=== PATIENT | female | born 1960 | race Caucasian/White ===

== ENCOUNTER 2018-06-10 18:16 | Emergency (ER) | payer OTHER, SELFPAY ==
[2018-06-10 18:49] VITALS: BP 147/85; PULSE 118; RESP 17; TEMP 36.5
[2018-06-10 22:26] VITALS: BP 131/94; PULSE 85; RESP 20; TEMP 37.1; O2SAT 97
--- NOTE | 2018-06-10 22:27 | DI.CT.S_ITS ---
PROCEDURE: CT ABDOMEN PELVIS W CON INDICATIONS: nausea ,increased pain TECHNIQUE: After the administration of intravenous contrast, 5 mm thick sections acquired from the diaphragm to the symphysis. 5 mm coronal and sagittal reformats were acquired. For radiation dose reduction, the following was used: automated exposure control, adjustment of mA and/or kV according to patient size. COMPARISON: None. FINDINGS: Image quality: Excellent. ABDOMEN: Lung bases: Lung bases are clear. Heart size is normal. Solid organs: Liver is normal in size and enhancement. Diffuse fatty infiltration of the liver with focal fatty sparing adjacent to the gallbladder fossa. Liver has a nodular contour suggesting hepatic cirrhosis. Gallbladder contains a small gallstone. Biliary system is non dilated. Pancreas enhances normally. Spleen is normal in size and enhancement. 1.3 cm soft tissue density left adrenal nodule. Right kidney demonstrates normal size and enhancement, without hydronephrosis. Left kidney is atrophied. Numerous 2-4 mm diameter nonobstructing stones noted in the inferior pole of the left kidney. Peritoneum and bowel: Bowel loops demonstrate normal wall thickness and caliber. Scattered colonic diverticuli without evidence of diverticulitis. No free fluid or air. Nodes and vessels: No retroperitoneal or mesenteric adenopathy by size criteria. Aorta and inferior vena cava are normal in size. Scattered atherosclerotic calcifications involving the abdominal and pelvic vasculature. Miscellaneous: No ventral hernias. PELVIS: Genitourinary: Bladder wall thickness is normal. Miscellaneous: No inguinal hernias or adenopathy. Bones: No suspicious bony lesions. No vertebral body compression fractures. Spine degenerative disc disease and facet arthropathy. IMPRESSION: 1. No evidence of appendicitis. 2. Colonic diverticulosis without evidence of diverticulitis. 3. Left renal atrophy. 4. Hepatic steatosis. Liver has mildly nodular margins suggesting hepatic cirrhosis. Recommend correlation with clinical and laboratory data. 5. Cholelithiasis. 6. 1.3 cm left adrenal nodule. Recommend dedicated MR or CT adrenal protocol for definitive characterization. Dictated by: Ani Mcbride MD, PhD on 06/11/2018 at 8:30 Approved by: Ani Mcbride MD, PhD on 06/11/2018 at 8:35
--- NOTE | 2018-06-10 22:28 | ED.GENADULT ---
HPI - General Adult General Chief complaint: Diabetic Problem Stated complaint: HIGH BLOOD SUGAR Time Seen by Provider: 06/10/18 22:26 Source: patient Mode of arrival: ambulatory Limitations: no limitations History of Present Illness HPI narrative: Patient is a 58-year-old female presents with his nausea ongoing for last 2 days. She says she has actually vomiting. She does have some mild abdominal pain and discomfort. She had 1 episode of diarrhea yesterday is no further episodes. She is a diabetic she has been able to take her insulin but none of her other medications. She denies any fever or chills. Onset (ago): day(s) (2) Related Data Previous Rx's Medication Instructions Recorded cephalexin [Keflex] 500 mg PO TID #15 cap 06/11/18 ondansetron 4 mg PO Q6-8H PRN #10 tab 06/11/18 Allergies Allergy/AdvReac Type Severity Reaction Status Date / Time lidocaine Allergy Verified 06/10/18 23:59 morphine Allergy Verified 06/10/18 23:59 Tetanus Vaccines and Toxoid Allergy Verified 06/10/18 23:59 Review of Systems Review of Systems GENERAL: Denies chills, fatigue, malaise, fever, sweats, travel HEENT: Denies sinus pain, ear pain, sore throat, difficulty swallowing, neck pain RESPIRATORY: Denies dyspnea, cough, wheezing, hemoptysis, sputum. CARDIOVASCULAR: Denies chest pain, palpitations, orthopnea, edema GASTROINTESTINAL: See HPI : Denies dysuria, frequency, incontinence, hematuria, urinary retention, flank pain. MUSCULOSKELETAL: Denies weakness, joint pain, or bony pain SKIN: No rash, no erythema, no pruritus NEUROLOGIC: Denies weakness, dizziness, headache, numbness, change in speech, confusion PSYCHIATRIC: No concerning psychosocial issues. 12 point review of systems is negative except for those stated above and HPI PFSH Medical History Diabetes (Acute) Hyperlipidemia (Acute) Social History Smoking Status: Never smoker Social History Smoking Status: Never smoker Exam Initial Vital Signs Initial Vital Signs: Vital Signs Temperature 97.7 F 06/10/18 18:49 Pulse Rate 118 H 06/10/18 18:49 Respiratory Rate 17 06/10/18 18:49 Blood Pressure 147/85 H 06/10/18 18:49 GENERAL: Overweight well-appearing female no acute distress HEENT: Head atraumatic,EOMI, pupils reactive, face symmetric, moist mucous membranes CARDIOVASCULAR: Regular rate and rhythm without murmurs, rubs or gallops. RESPIRATORY: Breath sounds equal bilaterally, no wheezes rales or rhonchi. ABDOMEN: Soft, slightly distended increased bowel sounds nontender no guarding or rebound EXTREMITIES: Normal range of motion, no clubbing or edema. Neurovascularly intact NEUROLOGICAL: Alert and oriented x4.Normal gait and speech. SKIN: Warm, dry, no laceration, no petechiae, no rashes or lesions. Course Orders Ordered: ED Orders 06/10/18 22:27 CT abdomen pelvis w con Stat 06/10/18 23:15 Complete Blood Count AUTO DIFF Stat Comprehensive Metabolic Panel Stat Lipase Stat 06/10/18 23:26 Urine Culture Stat 06/11/18 00:11 UA Complete [Urinalysis and Microscopic] Stat Discontinued Medications Sodium Chloride (Normal Saline 0.9%) 1,000 mls @ 1,000 mls/hr IV CONT GEOVANNI Last Infusion: 06/11/18 00:00 Dose: 0 mls/hr Admin: 06/10/18 22:56 Dose: 1,000 mls/hr Ondansetron HCl (Zofran) 4 mg IV NOW ONE Stop: 06/10/18 22:28 Last Admin: 06/10/18 22:56 Dose: 4 mg Ondansetron HCl (Zofran Odt Prepack) 1 bottle MISC SEEINSTR ONE Stop: 06/11/18 01:28 Last Admin: 06/11/18 01:36 Dose: 1 bottle Pantoprazole Sodium (Protonix) 40 mg IV NOW ONE Stop: 06/10/18 22:28 Last Admin: 06/10/18 22:56 Dose: 40 mg Vital Signs - 8 hr 06/10/18 22:26 06/10/18 23:44 06/11/18 01:37 Temperature 98.8 F 98.2 F Pulse Rate 85 81 78 Respiratory Rate 20 18 18 Blood Pressure 128/72 Blood Pressure [Left Arm] 131/94 H 128/72 Pulse Oximetry 97 95 98 Medical Decision Making Lab Data Lab results reviewed: Yes I reviewed the patient's lab results. Result diagrams: 06/10/18 23:15 06/10/18 23:15 Lab Results 03/15/19 03/15/19 03/15/19 Range/Units 23:15 23:15 23:26 WBC 9.1 (4.5-11.0) X10^3/uL RBC 4.72 (4.0-5.2) X10^6/uL Hgb 12.6 (12.0-16.0) g/dL Hct 38.3 (36-46) % MCV 81.2 (80-100) fL MCH 26.8 (26-34) PG MCHC 33.0 (30-36) % RDW 14.7 (11.6-14.8) % Plt Count 247 (150-400) X10^3/uL Neut % (Auto) 47.3 L (50-75) % Lymph % (Auto) 42.1 H (25-40) % [place] % (Auto) 6.4 (3-14) % Eos % (Auto) 3.2 (2-4) % Baso % (Auto) 1.0 (0-2) % Neut # (Auto) 4300 (1530-0452) /uL Lymph # (Auto) 3800 (7128-2999) /uL [place] # (Auto) 600 (0-900) /uL Eos # (Auto) 300 (0-450) /uL Baso # (Auto) 100 (0-100) /uL Sodium 137 (137-145) mmol/L Potassium 4.4 (3.4-5.1) mmol/L Chloride 98 (98-107) mmol/L Carbon Dioxide 26 (22-32) mmol/L BUN 16 (7-17) mg/dL Creatinine 0.90 (0.52-1.04) mg/dL Estimated GFR > 60.0 (>60) mL/min BUN/Creatinine Ratio 17.8 (6-22) Glucose 151 H (70-100) mg/dL Calcium 10.0 (8.4-10.2) mg/dL Total Bilirubin 0.7 (0.2-1.3) mg/dL AST 60 H (14-36) IU/L ALT 55 H (9-52) IU/L Alkaline Phosphatase 64 (38-126) U/L Total Protein 8.8 H (6.3-8.2) g/dL Albumin 4.8 (3.5-5.0) g/dL Globulin 4.0 (1.7-4.1) g/dL Albumin/Globulin Ratio 1.2 (1.0-2.8) Lipase 151 (23-300) U/L Urine Color Yellow Urine Appearance Slightly cloudy Urine pH 5.5 (4.5-8.0) Ur Specific [place] 1.015 (1.000-1.035) Urine Protein Negative (Negative) Urine Glucose (UA) Negative (Negative) g/dL Urine Ketones Negative (NEGATIVE) Urine Occult Blood Negative (Negative) Urine Nitrate Negative (Negative) Urine Bilirubin Negative (NEGATIVE) Urine Urobilinogen 0.2 (0.2) E.U./dL Ur Leukocyte Esterase Trace H (NEGATIVE) Urine RBC None seen (0-5/HPF) Urine WBC 1-5/hpf (0-5/HPF) Urine Bacteria Many (>30) H (None) Ur Culture Indicated? Specimen cultured Imaging Data CT scan - abdomen: Radiologist's impression: shift nurse manager report: Normal appendix no diverticulitis or bowel obstruction. MDM Narrative Additional Information: Patient has no leukocytosis. She has trace leukocytes and bacteria in her urine. His she denies any frequency or dysuria however she does state that her urine has a smell is and she frequently gets UTIs. At this time will treat for UTI. She does not appear septic or toxic overall appears well. She has no sign of DKA no ketones in her urine is not acidotic, no anion gap. Discharge Plan Departure Patient Disposition: Home Clinical Impression: UTI (urinary tract infection) Qualifiers: Urinary tract infection type: acute cystitis Hematuria presence: without hematuria Qualified Code(s): N30.00 - Acute cystitis without hematuria Discharge Date/Time: 06/11/18 01:43 Interventions: ED Discharge Assessment Last Done: 06/11/18 01:37 Instructions: DI for Urinary Tract Infection (UTI) Activity Restrictions/Additional Instructions: *You have been diagnosed with bladder infection *What to do: Increase fluid intake. Blood work and CT scan today are reassuring. It looks like he have a minor bladder infection *Continue to take medications as directed Zofran 4 mg every 6-8 hours if needed for nausea vomiting Keflex 500 mg 3 times a day for 5 days *Follow up with your primary care provider in 2-3 days *Return to ER if you should have inability to tolerate fluids increasing pain or any new, worsening or concerning symptoms Prescriptions: New cephalexin [Keflex] 500 mg capsule 500 mg PO TID Qty: 15 RF: 0 ondansetron 4 mg tablet,disintegrating 4 mg PO Q6-8H PRN (Reason: nausea and vomiting) Qty: 10 RF: 0
[2018-06-10] MEDS: ONDANSETRON 4 MG/2 ML INJ IV (22:56)
[2018-06-10] MEDS: PANTOPRAZOLE 40 MG VIAL IV (22:56)
[2018-06-10] MEDS: SODIUM CHLORIDE 0.9% 1,000 ML 1000 ML IV (22:56)
[2018-06-10 23:32] LABS: Add Manual Diff / Slide Review NO; Basophils Absolute Auto 100 /uL (0-100); Eosinophils Absolute Auto 300 /uL (0-450); Eosinophils Percent Auto 3.2 % (2-4); Hematocrit 38.3 % (36-46); Hemoglobin 12.6 g/dL (12.0-16.0); Lymphocytes Absolute Auto 3800 /uL (1100-4500); Lymphocytes Percent Auto 42.1 % (25-40); Mean Corpuscular Hemoglobin 26.8 PG (26-34); Mean Corpuscular Volume 81.2 fL (80-100); Monocytes Absolute Auto 600 /uL (0-900); Monocytes Percent Auto 6.4 % (3-14); Neutrophils Absolute Auto 4300 /uL (1500-7000); Neutrophils Percent Auto 47.3 % (50-75); Platelet Count 247 X10^3/uL (150-400); Red Blood Cell Count 4.72 X10^6/uL (4.0-5.2); Red Cell Distribution Width 14.7 % (11.6-14.8); White Blood Cell Count 9.1 X10^3/uL (4.5-11.0)
[2018-06-10 23:41] LABS: Alanine Aminotransferase 55 IU/L (9-52); Albumin 4.8 g/dL (3.5-5.0); Albumin Globulin Ratio 1.2 (1.0-2.8); Alkaline Phosphatase 64 U/L (38-126); Aspartate Aminotransferase 60 IU/L (14-36); BUN Creatinine Ratio 17.8 (6-22); Bilirubin Total 0.7 mg/dL (0.2-1.3); Blood Urea Nitrogen 16 mg/dL (7-17); Carbon Dioxide 26 mmol/L (22-32); Chloride 98 mmol/L (98-107); Estimated Glomerular Filt Rate > 60.0 mL/min (>60); Glucose 151 mg/dL (70-100); HEMOLYSIS 25 (0-50); Lipase 151 U/L (23-300); Potassium 4.4 mmol/L (3.4-5.1); Sodium 137 mmol/L (137-145); Total Protein 8.8 g/dL (6.3-8.2)
[2018-06-10 23:44] VITALS: BP 128/72; PULSE 81; RESP 18; O2SAT 95
[2018-06-11 00:29] LABS: RBC Urine None Seen (0-5/HPF)
[2018-06-11 00:44] LABS: Bilirubin Urine UA NEGATIVE (NEGATIVE); Color Urine UA YELLOW; Glucose Urine UA NEGATIVE (Negative); Ketones Urine UA NEGATIVE (NEGATIVE); Leukocyte Esterase Urine UA TRACE (NEGATIVE); Nitrite Urine UA NEGATIVE (Negative); Occult Blood Urine UA NEGATIVE (Negative); Protein Urine UA NEGATIVE (Negative); Specific Gravity Urine UA 1.015 (1.000-1.035); Urobilinogen Urine UA 0.2 E.U./dL (0.2); pH Urine UA 5.5 (4.5-8.0)
[2018-06-11 00:46] LABS: Appearance Urine UA Slightly Cloudy
[2018-06-11 00:55] LABS: Bacteria Urine Many (>30); Culture Indicated Urine Specimen Cultured; WBC Urine 1-5/HPF (0-5/HPF)
[2018-06-11] MEDS: ONDANSETRON 4 MG ODT PREPACK 1 BOTTLE MISC (01:36)
[2018-06-11 01:37] VITALS: BP 128/72; PULSE 78; RESP 18; TEMP 36.8; O2SAT 98
== END 2018-06-11 01:43 | disposition home or self-care (01) ==
PROVIDERS: Emergency Provider Emergency Medicine
DX: N30.00 Acute cystitis without hematuria (principal)
CPT/HCPCS: 36591; 74177; 80053; 81001; 83690; 85025; 87077; 87086; 87186; 96361; 96374; 96375; 99283; 99285; C9113; J2405; Q9967